=== PATIENT | female | born 1985 | race Caucasian/White ===

== ENCOUNTER 2018-11-20 22:56 | Emergency (ER) | payer SELFPAY | END 2018-11-20 23:50 | disposition home or self-care (01) | LOC: ERS 22:56 | DX: S80.12XA Contusion of left lower leg, initial encounter (principal); V43.62XA Car passenger injured in collision with other type car in traffic accident, initial encounter | CPT/HCPCS: 99283 ==

== ENCOUNTER 2019-09-11 14:52 | Inpatient (IN) | payer OTHER, SELFPAY ==
[2019-09-11] MEDS ORDERED: Morphine 4 MG/ML VIAL ONE (17:32)
[2019-09-11] MEDS ORDERED: Ondansetron PF 4 MG/2 ML Vial ONE (17:32)
[2019-09-11 17:49] LABS: Hemoglobin 11.1 g/dL (12.0-16.0); Mean Corpuscular HGB CONC 31.4 g/dL (32.0-36.0); Mean Corpuscular Hemoglobin 27.5 pg (27.0-31.0); Mean Corpuscular Volume 87.4 fL (78.0-98.0); Mean Platelet Volume 7.1 fL (7.4-10.4); Platelet Count 604 thou/uL (130-400); RBC Distribution Width 11.7 % (11.5-14.5); Red Blood Cell (RBC) Count 4.05 mill/uL (4.20-5.40)
[2019-09-11 18:05] LABS: ALT (SGPT) 24 U/L (8-55); AST (SGOT) 18 U/L (5-34); Albumin 3.5 g/dL (3.5-5.0); Alkaline Phosphatase 164 U/L (40-110); Anion Gap 17 mmol/L (10-20); BUN (Urea Nitrogen) 16 mg/dL (7.0-18.7); Bilirubin, Total 0.5 mg/dL (0.2-1.2); CRP (Inflammatory) 15.71 mg/dL (= or < 0.5); Calc. Creatinine Clearance 0 mL/min (70-130); Calcium 9.3 mg/dL (7.8-10.44); Carbon Dioxide 26 mmol/L (22-29); Chloride 90 mmol/L (98-107); Estimated GFR-MDRD 37; Globulin 5.1 g/dL (2.4-3.5); Glucose 379 mg/dL (70-105); Potassium 3.8 mmol/L (3.5-5.1); Protein, Total 8.6 g/dL (6.0-8.3); Sodium 129 mmol/L (136-145)
[2019-09-11 18:08] LABS: Band 6 % (5-11); Eosinophils 1 % (0-10); Lymphocytes 9 % (21-51); MDiff Complete? YES; Monocytes 4 % (0-10); Myelocyte 1 % (0-0); Neutrophil 79 % (42-75); Platelet Morphology Comment Appears Increased; Polychromasia SLIGHT = 2-3 cells (100X) (0-2/hpf)
[2019-09-11] MEDS ORDERED: cefTRIAXone\\ROCEPHIN 2 GM VIAL ONE (18:34)
--- NOTE | 2019-09-11 18:42 | RAD ---
Exam: XR Foot Lt 3 View STANDARD HISTORY: Infection of the great toe. COMPARISON: None FINDINGS: There is subcutaneous emphysema about the great toe as well as subcutaneous edema. Findings are worri some for infection and likely secondary to gas-forming organism. Subcutaneous soft tissue swelling is seen at the anterior aspect of the ankle as well as at the dorsal aspect of the foot. No acute fracture, dislocation, or other acute osseous abnormality is identified. IMPRESSION: 1. Subcutaneous edema and emphysema involving the left great toe worrisome for infection, and finding s are worrisome for gas forming organism given subcutaneous emphysema. 2. Subcutaneous edema dorsal aspect of the foot which could be related to cellulitis. 3. No acute osseous abnormalities seen. There is no osseous destruction to suggest radiographic evide nce of osteomyelitis. However, MRI would be more sensitive study of choice for evaluation of early osteomyelitis.
[2019-09-11] MEDS ORDERED: Dextrose 50% Abboject 50 ML SYRINGE SLOW IVP PRN (21:02)
[2019-09-11] MEDS ORDERED: Acetaminophen 325 MG TAB PO PRN (21:02)
[2019-09-11] MEDS ORDERED: Senokot S 8.6-50 MG TAB PO PRN (21:02)
[2019-09-11] MEDS ORDERED: Dextrose 5% in Water 1,000 ML IV PRN (21:02)
[2019-09-11] MEDS ORDERED: HYDROcodone/Acetaminophen 5/325 mg Tablet PO PRN (21:02)
--- NOTE | 2019-09-11 21:06 | PDOC.HHP ---
Hospitalist HPI - History of Present Illness Left foot infection History of Present Illness: 34 yo female with no known PMH presents to ER due to 2 weeks of left great toe infection. Patient states that 2 weeks ago she found a blister on the bottom of her left great toe. It burst by itself and she tried to clean it. She has been going to work and states that she fell at work about a week ago. She has noticed some pain and swelling in her left leg for the past week. She reports 4/ 10 pain in her left foot without radiation that is throbbing in nature. Reports fever and chills, nausea, vomiting. No constipation but has diarrhea. No abd. pain. No CP, SOB, Cough, wheezing. She has intermittent palpitations, lightheadedness. No burning or pain with urination. No headache or vision changes. She reports redness in her left foot. ED Course: Found to have left foot infection and given IV ABX. Found to have new onset diabetes Hospitalist ROS - Review of Systems All other systems reviewed; all pertinent +/- noted in HPI/Subj Hospitalist History - Past Medical History Source: patient Cardiac: reports: no pertinent history Pulmonary: reports: no pertinent history [employer]: reports: no pertinent history Gastrointestinal: reports: no pertinent history - Past Surgical History Past Surgical History: reports: no pertinent history (reviewed) - Family History Family History: reports: diabetes mellitus (maternal side) - Social History Smoking Status: Never smoker Alcohol: reports: None Drugs: reports: none Living Situation: Alone Activity level: independent ambulation - Exam General Appearance: awake alert, ill appearing Eye: PERRL, anicteric sclera ENT: normocephalic atraumatic, no oropharyngeal lesions, dry oral mucosa Neck: supple, symmetric, no JVD, no thyromegaly Neck - other findings: bilateral lymph nodes that are non tender Heart: no murmur, no gallops, no rubs, normal peripheral pulses Heart - other findings: tachycardia present Respiratory: CTAB, no wheezes, no rales, no ronchi, normal chest expansion, no tachypnea, normal percussion Gastrointestinal: soft, non-tender, non-distended, normal bowel sounds, no palpable masses, no hepatomegaly, no splenomegaly Extremities: no cyanosis, no clubbing, 1+ LE edema (LLE) Skin: normal turgor Skin - other findings: Erythema over left foot; Left great toe purulent discharge and sloughing Neurological: cranial nerve grossly intact, no weakness, no focal deficits Neurological - other findings: Reduced sensation distally Musculoskeletal: normal tone, normal strength, no muscle wasting Psychiatric: normal affect, normal behavior, A&O x 3 Hospitalist Results - Labs Result Diagrams: 09/11/19 17:35 09/11/19 17:35 Lab results: WBC 20.0 thou/uL (4.8-10.8) H 09/11/19 17:35 Hgb 11.1 g/dL (12.0-16.0) L 09/11/19 17:35 Hct 35.4 % (36.0-47.0) L 09/11/19 17:35 MCV 87.4 fL (78.0-98.0) 09/11/19 17:35 Plt Count 604 thou/uL (130-400) H 09/11/19 17:35 Band Neuts % (Manual) 6 % (5-11) 09/11/19 17:35 ESR Westergren Greater than 130 mm/hr (Less than 20) 09/11/19 17:35 Sodium 129 mmol/L (136-145) L 09/11/19 17:35 Potassium 3.8 mmol/L (3.5-5.1) 09/11/19 17:35 Chloride 90 mmol/L (98-107) L 09/11/19 17:35 Carbon Dioxide 26 mmol/L (22-29) 09/11/19 17:35 BUN 16 mg/dL (7.0-18.7) 09/11/19 17:35 Creatinine 1.58 mg/dL (0.6-1.1) H 09/11/19 17:35 Glucose 379 mg/dL (70-105) H 09/11/19 17:35 Lactic Acid 0.9 mmol/L (0.5-2.2) 09/11/19 17:35 Calcium 9.3 mg/dL (7.8-10.44) 09/11/19 17:35 Total Bilirubin 0.5 mg/dL (0.2-1.2) 09/11/19 17:35 AST 18 U/L (5-34) 09/11/19 17:35 ALT 24 U/L (8-55) 09/11/19 17:35 Alkaline Phosphatase 164 U/L (40-110) H 09/11/19 17:35 C-Reactive Protein 15.71 mg/dL (= or < 0.5) H 09/11/19 17:35 Serum Total Protein 8.6 g/dL (6.0-8.3) H 09/11/19 17:35 Albumin 3.5 g/dL (3.5-5.0) 09/11/19 17:35 - Radiology Interpretation Other Status: report reviewed by me (X-ray left foot - emphysema concerning for gas forming organisms) Hospitalist H&P A/P - Problem (1) Foot infection Code(s): L08.9 - LOCAL INFECTION OF THE SKIN AND SUBCUTANEOUS TISSUE, UNSP Status: Acute Assessment and Plan: Admit to inpatient status. Expected to stay at least 2 midnights High risk due to likely need for surgery Will obtain MRI Surgery consult Vanco & cefepime ESR & CRP IV fluids Sepsis present due to infection WBC of 20K and HR>90/min Check lactate level ID consult (2) KENNY (acute kidney injury) Code(s): N17.9 - ACUTE KIDNEY FAILURE, UNSPECIFIED Status: Acute Assessment and Plan: Check renal US Likely related to sepsis and dehydration IVF Avoid nephrotoxic meds and hypotension May need renal consult (3) Hyperglycemia Code(s): R73.9 - HYPERGLYCEMIA, UNSPECIFIED Status: Acute Assessment and Plan: Riccardo new onset DM Check HA1c Start basal Insulin and SSI Diabetic teaching Diabetic diet Hold oral DM meds for now - Plan Plan: CODE STATUS - FULL CODE
[2019-09-11] MEDS ORDERED: Insulin Glargine 10 UNITS in Pre-Filled Syringe 1 EACH SC SCH (21:15)
[2019-09-11 21:58] LABS: Hemoglobin A1c Greater than 14.0 % (4.0-6.0)
[2019-09-11] MEDS: 1/2 NS w/KCL 20 mEq 1,000 ML IV SCH (22:54)
[2019-09-11 23:35] VITALS: BMI 31.3
--- NOTE | 2019-09-12 00:10 | ULT ---
Bilateral renal ultrasound CLINICAL INDICATION: Acute renal insufficiency COMPARISON: None FINDINGS: Right kidney: There is no evidence of a renal mass, renal calculus, or hydronephrosis seen. The right kidney measures 13.3 cm x 6 cm. Left kidney: There is no evidence of a renal mass, renal calculus, or hydronephrosis. The left kidney measures 11.8 cm x 6.1 cm. Urinary bladder: Partially distended. Urinary bladder blair do appear mildly thickened. This is overa ll nonspecific but can be seen with cystitis. Ureteral jets are visualized bilaterally. There is trace amount of free fluid is seen in the pelvis. IMPRESSION: 1. Normal appearing bilateral kidneys without evidence of hydronephrosis. 2. Mild thickening of the blair urinary bladder which is nonspecific. This can be seen with cystitis in the correct clinical scenario. 3. Trace amount of free fluid in the cul-de-sac which is likely physiologic in origin
[2019-09-12] MEDS: HumaLOG 300 UNITS/3 ML VIAL SC PRN (05:46)
[2019-09-12] MEDS: 1/2 NS w/KCL 20 mEq 1,000 ML IV SCH ×3 (05:46→22:00)
[2019-09-12 06:01] LABS: #Eosinphils 0.2 thou/uL (0.0-0.7); #Lymphocytes 2.8 thou/uL (1.20-3.40); #Monocytes 1.5 thou/uL (0.11-0.59); #Neutrophils 13.3 thou/uL (1.40-6.50); %Eosinophils 1.2 % (0.0-10.0); %Lymphocytes 15.7 % (21.0-51.0); %Monocytes 8.3 % (0.0-10.0); %Neutrophils 74.7 % (42.0-75.0); Hemoglobin 8.7 g/dL (12.0-16.0); Mean Corpuscular HGB CONC 31.1 g/dL (32.0-36.0); Mean Corpuscular Hemoglobin 28.2 pg (27.0-31.0); Mean Corpuscular Volume 90.7 fL (78.0-98.0); Mean Platelet Volume 8.4 fL (7.4-10.4); Platelet Count 399 thou/uL (130-400); RBC Distribution Width 11.6 % (11.5-14.5); Red Blood Cell (RBC) Count 3.08 mill/uL (4.20-5.40); White Blood Cell (WBC) Count 17.8 thou/uL (4.8-10.8)
[2019-09-12 06:16] LABS: ALT (SGPT) 19 U/L (8-55); AST (SGOT) 25 U/L (5-34); Albumin 2.5 g/dL (3.5-5.0); Alkaline Phosphatase 122 U/L (40-110); Anion Gap 12 mmol/L (10-20); BUN (Urea Nitrogen) 16 mg/dL (7.0-18.7); Bilirubin, Total 0.2 mg/dL (0.2-1.2); Calc. Creatinine Clearance 89 mL/min (70-130); Calcium 8.1 mg/dL (7.8-10.44); Carbon Dioxide 25 mmol/L (22-29); Chloride 96 mmol/L (98-107); Estimated GFR-MDRD 48; Globulin 4.2 g/dL (2.4-3.5); Glucose 269 mg/dL (70-105); Potassium 4.8 mmol/L (3.5-5.1); Protein, Total 6.7 g/dL (6.0-8.3); Sodium 128 mmol/L (136-145)
[2019-09-12] MEDS ORDERED: traMADol HCl 50 MG TAB PO PRN ×2 (08:34)
[2019-09-12] MEDS ORDERED: Cefepime 2 GM in Sodium Chloride 0.9% 100 ML IVPB SCH (09:00)
[2019-09-12] MEDS ORDERED: Heparin 5,000 UNITS/ML VIAL SC SCH (09:00)
--- NOTE | 2019-09-12 09:03 | CON ---
DATE OF CONSULTATION: HISTORY OF PRESENT ILLNESS: October Marina, 34-year-old female, newly diagnosed diabetes, presented to the emergency room with severe infection in her left foot involving her great toe. Plain x-ray revealed gas. Evaluation reveals a plantar defect extending with a probed sinus tract to the proximal phalanx. She has foul smelling gas gangrene, left great toe involving the metatarsophalangeal joint. She has cellulitis in her forefoot. MRI has been ordered, but I will cancel that. She has noted above. She has newly diagnosed diabetes. Her white count was 20,000 on admission, 17,000 this morning. Creatinine 1.58 on admission, 1.27 this morning. Her hemoglobin A1c is greater than 14. Glucose is 269 to 332. Newly diagnosed diabetes. ALLERGIES: NONE. SOCIAL HISTORY: Tobacco, none. Alcohol, none. MEDICATIONS: At home, none. In the hospital, she has been started on vancomycin and cefepime. We will add Zosyn as this is probably a risk for Clostridium. PAST SURGICAL HISTORY: Noncontributory. PAST MEDICAL HISTORY: Noncontributory. Patient is a damian. She works at the [employer]. PHYSICAL EXAMINATION: VITAL SIGNS: 5 feet 7 inches, 199 pounds, 31 BMI, 98.2 degrees, 92, 138/86. HEAD, EARS, EYES, NOSE, AND THROAT: Unremarkable. LUNGS: Clear to auscultation. CARDIAC: Regular rhythm without murmur or gallop. ABDOMEN: Soft, nontender, obese. EXTREMITIES: Palpable femoral, popliteal, dorsalis pedis, and posterior tibial pulses. She has hair over the dorsum of her foot. She has cellulitis left foot to the mid foot. She has edema to the ankle. Left great toe reveals diabetic gangrene, foul smelling with a plantar ulceration extending to the phalanx at least. She has gangrenous skin surrounding the proximal left great toe and skin changes intervening. ASSESSMENT AND PLAN: Diabetic gas gangrene, left great toe. PLAN: 1. Emergent amputation left great toe and metatarsal. We will cancel her MRI. Ask Wound Care to apply wound VAC in the operating room. We will add Zosyn to her antibiotic regimen. Expect her to be hospitalized until next week. 2. Newly diagnosed diabetes, have encouraged weight loss. Job ID: [id number]
[2019-09-12] MEDS: Polyethylene Glycol 3350 17 GM Packet PO SCH (09:09)
[2019-09-12] MEDS: Vancomycin 1 GM in Premix Bag 1 BAG IVPB SCH ×2 (09:09→20:34)
[2019-09-12] MEDS ORDERED: PHENYLEPHRINE-NS 100 MCG/ML 10 ML SYRINGE ONE (09:42)
[2019-09-12] MEDS ORDERED: Ondansetron PF 4 MG/2 ML Vial ONE (09:42)
[2019-09-12] MEDS ORDERED: Lidocaine 1% PF 5 ML VIAL ONE (09:42)
[2019-09-12] MEDS ORDERED: EPHEDRINE 25 MG/5 ML SYRINGE ONE (09:42)
[2019-09-12] MEDS ORDERED: PROPOFOL 200 MG/20 ML VIAL ONE (09:42)
[2019-09-12] MEDS ORDERED: Piperacillin/Tazobactam 4.5 GM in Sodium Chloride 0.9% 100 ML IVPB SCH (10:00)
[2019-09-12] MEDS: HumaLOG 300 UNITS/3 ML VIAL SC SCH ×2 (11:30→17:57)
[2019-09-12] MEDS ORDERED: Fentanyl 100 MCG/2 ML VIAL ONE (14:07)
[2019-09-12] MEDS ORDERED: Bupivacaine PF 0.5% 30 ML VIAL ONE (14:26)
[2019-09-12] MEDS ORDERED: Lidocaine 1% w/Epinephrine 1:100K 20 ML VIAL ONE (14:26)
[2019-09-12] MEDS ORDERED: Morphine Sulfate 2 MG/ML SYRINGE SLOW IVP PRN (15:09)
[2019-09-12] MEDS ORDERED: Promethazine HCl 25 MG/ML VIAL SLOW IVP PRN (15:09)
[2019-09-12] MEDS ORDERED: PACU-Morphine 4MG/ML VIAL SLOW IVP PRN (15:09)
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
[2019-09-12] MEDS: Ondansetron PF 4 MG/2 ML Vial IVP PRN (20:31)
[2019-09-12] MEDS: Enoxaparin Sodium 40 MG/0.4 ML SYRINGE SC SCH (20:34)
[2019-09-12] MEDS: Piperacillin/Tazobactam 4.5 GM in Sodium Chloride 0.9% 100 ML IVPB SCH (20:35)
[2019-09-12] MEDS: Insulin Glargine 15 UNITS in Pre-Filled Syringe 1 EACH SC SCH (20:49)
[2019-09-12] MEDS ORDERED: Insulin Glargine 10 UNITS in Pre-Filled Syringe 1 EACH SC SCH (21:00)
--- NOTE | 2019-09-12 21:30 | OP ---
DATE OF PROCEDURE: 09/12/2019 PREOPERATIVE DIAGNOSES: Newly diagnosed diabetic, hemoglobin A1c greater than 14, diabetic infection left great toe with osteomyelitis and gas gangrene. POSTOPERATIVE DIAGNOSES: Newly diagnosed diabetic, hemoglobin A1c greater than 14, diabetic infection left great toe with osteomyelitis and gas gangrene. PROCEDURE PERFORMED: Amputation of left great toe and metatarsal healing by secondary intention, culture submitted. ANESTHESIA: General anesthesia. Note, excellent blood supply and palpable pulses. DESCRIPTION OF PROCEDURE: The patient was taken to the operating room, where under general anesthesia, left lower extremity was prepared with ChloraPrep and draped in routine fashion. Incision was made to amputate the left great toe with gangrenous tissue carried out to skin and subcutaneous tissue, amputating the metatarsal with a bone cutter resecting approximately with rongeur. Wound irrigated. There was bleeding controlled with cautery. Wound irrigated. Necrotic tissue debrided. Good hemostasis noted. Wound Care Team arrived to place a wound VAC. The patient tolerated the procedure well. Job ID: [id number]
--- NOTE | 2019-09-12 22:16 | PDOC.HOSPP ---
- Subjective Encounter Date: 09/12/19 Encounter Time: 16:00 Subjective: no overnight events. this afternoon, s/p amputation L big toe. tolerated procedure well, has no complaints. - Objective Vital Signs & Weight: Vital Signs (12 hours) Temp Pulse Resp BP Pulse Ox 09/12/19 11:51 98.7 F 104 H 22 H 165/72 H 94 L Weight Admit Weight 199 lb 14.4 oz Weight 199 lb 14.4 oz I&O: 09/11/19 09/12/19 09/13/19 06:59 06:59 06:59 Intake Total 2100 Balance 2100 Result Diagrams: 09/12/19 05:15 09/12/19 05:15 Additional Labs: Accuchecks 09/12/19 09/12/19 09/12/19 16:40 11:43 05:16 POC Glucose 197 H 223 H 269 H 09/11/19 22:47 POC Glucose 332 H Hospitalist ROS - Review of Systems Constitutional: denies: fever, chills, sweats, weakness, malaise, other Respiratory: denies: cough, dry, shortness of breath, hemoptysis, SOB with excertion, pleuritic pain, sputum, wheezing, other Cardiovascular: denies: chest pain, palpitations, orthopnea, paroxysmal noc. dyspnea, edema, light headedness, other Gastrointestinal: denies: nausea, vomiting, abdominal pain, diarrhea, constipation, melena, hematochezia, other Genitourinary: denies: dysuria, frequency, incontinence, hematuria, retention, other - Medication Medications: Active Medications Generic Name Dose Route Start Last Admin Trade Name Shashiq PRN Reason Stop Dose Admin Enoxaparin Sodium 40 mg 09/12/19 21:00 09/12/19 20:34 Lovenox SC 40 mg 2100 ROSALVA Administration Vancomycin HCl 1 gm/ Device 200 mls @ 200 mls/hr 09/12/19 08:00 09/12/19 20: 34 IVPB 200 mls 0800,2000 ROSALVA Administration Potassium Chloride/Sodium Chloride 1,000 mls @ 125 mls/hr 09/11/19 22:00 12/26 22:00 1/2 Ns W/Kcl 20 Meq IV Not Given .Q8H ROSALVA Insulin Glargine 15 units/ 0.15 mls @ 0 mls/hr 09/12/19 21:00 09/12/19 20:49 Miscellaneous Medication SC 0.15 mls HS ROSALVA Administration As Directed Piperacillin Sod/Tazobactam 100 mls @ 200 mls/hr 09/12/19 21:00 09/12/19 20: 35 Sod 4.5 gm/ Sodium Chloride IVPB 100 mls 0300,0900,1500,2100 ROSALVA Administration Insulin Human Lispro 0 units 09/11/19 21:02 09/12/19 05:46 Humalog SC 4 unit .MILD SLIDING SCALE PRN Administration Mild Correctional Scale Insulin Human Lispro 5 units 09/12/19 11:30 09/12/19 17:57 Humalog SC 5 unit AC ROSALVA Administration Ondansetron HCl 4 mg 09/11/19 21:02 09/12/19 20:31 Zofran IVP 4 mg Q6H PRN Administration Nausea/Vomiting Polyethylene Glycol 17 gm 09/12/19 09:00 09/12/19 09:09 Miralax PO Not Given DAILY ROSALVA Sodium Chloride 10 ml 09/12/19 09:00 09/12/19 20:36 Flush - Normal Saline IVF Not Given Q12HR ROSALVA - Exam General Appearance: NAD, awake alert Neck: no JVD Heart: RRR, no murmur, no gallops, no rubs, normal peripheral pulses Respiratory: CTAB, no wheezes, no rales, no ronchi, normal chest expansion Gastrointestinal: soft, non-tender, non-distended, normal bowel sounds Extremities: no edema Extremities - other findings: wound vac placed over L toe, draining clean blood Neurological: cranial nerve grossly intact, normal sensation to touch, no weakness, no focal deficits Psychiatric: normal affect, normal behavior, A&O x 3 Hosp A/P - Plan #gas gangrene, osteomyelitis of L big toe -s/p amputation L big toe, metatarsal -tolerated procedure well -wound vac in place -on vanc and zosyn; continue Abx pending cultures -pain management #newly diagnosed T2DM -adjusted insulin regimen based on weight -continue to follow remaining management unchanged.
[2019-09-12] MEDS ORDERED: Loperamide HCl 2 MG CAP PO SCH (22:30)
[2019-09-13] MEDS: Piperacillin/Tazobactam 4.5 GM in Sodium Chloride 0.9% 100 ML IVPB SCH ×4 (02:47→21:13)
[2019-09-13] MEDS: Ondansetron PF 4 MG/2 ML Vial IVP PRN ×3 (02:51→20:38)
[2019-09-13] MEDS: Sodium Chloride 0.9% 1,000 ML IV SCH ×2 (04:11→16:46)
[2019-09-13] MEDS: Acetaminophen 500 MG TAB PO PRN ×3 (04:11→21:22)
[2019-09-13] MEDS: HumaLOG 300 UNITS/3 ML VIAL SC PRN ×2 (04:12→13:33)
[2019-09-13 07:19] LABS: #Basophils 0.1 thou/uL (0.0-0.2); #Eosinphils 0.3 thou/uL (0.0-0.7); #Lymphocytes 2.5 thou/uL (1.20-3.40); #Monocytes 0.9 thou/uL (0.11-0.59); %Basophils 0.4 % (0.0-1.0); %Eosinophils 1.8 % (0.0-10.0); %Monocytes 6.2 % (0.0-10.0); %Neutrophils 74.6 % (42.0-75.0); Hemoglobin 7.8 g/dL (12.0-16.0); Mean Corpuscular HGB CONC 32.9 g/dL (32.0-36.0); Mean Corpuscular Hemoglobin 29.7 pg (27.0-31.0); Mean Corpuscular Volume 90.2 fL (78.0-98.0); Mean Platelet Volume 6.7 fL (7.4-10.4); Platelet Count 482 thou/uL (130-400); RBC Distribution Width 11.6 % (11.5-14.5); Red Blood Cell (RBC) Count 2.63 mill/uL (4.20-5.40); White Blood Cell (WBC) Count 14.8 thou/uL (4.8-10.8)
[2019-09-13 07:22] LABS: Vancomycin, Trough 27.9 ug/mL
[2019-09-13 07:50] LABS: Anion Gap 11 mmol/L (10-20); BUN (Urea Nitrogen) 21 mg/dL (7.0-18.7); Calc. Creatinine Clearance 56 mL/min (70-130); Calcium 7.6 mg/dL (7.8-10.44); Carbon Dioxide 25 mmol/L (22-29); Chloride 99 mmol/L (98-107); Estimated GFR-MDRD 28; Glucose 322 mg/dL (70-105); Potassium 4.6 mmol/L (3.5-5.1); Sodium 130 mmol/L (136-145)
[2019-09-13] MEDS: Polyethylene Glycol 3350 17 GM Packet PO SCH (09:50)
[2019-09-13] MEDS: HumaLOG 300 UNITS/3 ML VIAL SC SCH ×4 (09:51→17:20)
--- NOTE | 2019-09-13 15:03 | PDOC.HOSPP ---
- Subjective Encounter Date: 09/13/19 Encounter Time: 11:40 Subjective: feels quite fatigued, d/w her reg.. insulin and having home regimen, pt able to acquire home insulin upon dc- no insurance. expalined a1c monitoring and diet adherence. - Objective Vital Signs & Weight: Vital Signs (12 hours) Temp Pulse Resp BP BP Pulse Ox 09/13/19 12:00 98.3 F 93 16 156/95 H 95 09/13/19 08:00 98.3 F 86 16 110/72 96 09/13/19 03:58 98.2 F 92 16 97/63 95 Weight Admit Weight 199 lb 14.4 oz Weight 199 lb 14.4 oz I&O: 09/12/19 09/13/19 09/14/19 06:59 06:59 07:59 Intake Total 2100 1750 240 Balance 2100 1750 240 Result Diagrams: 09/13/19 06:51 09/13/19 06:51 Additional Labs: Accuchecks 09/13/19 09/13/19 09/13/19 12:33 03:53 01:14 POC Glucose 232 H 333 H 301 H 09/12/19 16:40 POC Glucose 197 H Hospitalist ROS - Medication Medications: Active Medications Generic Name Dose Route Start Last Admin Trade Name Freq PRN Reason Stop Dose Admin Acetaminophen 1,000 mg 09/12/19 08:34 09/13/19 14:43 Tylenol PO 1,000 mg Q6H PRN Administration Moderate to Severe Pain (6-10) Enoxaparin Sodium 40 mg 09/12/19 21:00 09/12/19 20:34 Lovenox SC 40 mg 2100 ROSALVA Administration Insulin Glargine 15 units/ 0.15 mls @ 0 mls/hr 09/12/19 21:00 09/12/19 20:49 Miscellaneous Medication SC 0.15 mls HS ROSALVA Administration As Directed Piperacillin Sod/Tazobactam 100 mls @ 200 mls/hr 09/12/19 21:00 09/13/19 09: 52 Sod 4.5 gm/ Sodium Chloride IVPB 100 mls 0300,0900,1500,2100 ROSALVA Administration Sodium Chloride 1,000 mls @ 75 mls/hr 09/13/19 03:15 09/13/19 04:11 Normal Saline 0.9% IV 1,000 mls .[id number] ROSALVA Administration Insulin Human Lispro 0 units 09/11/19 21:02 09/13/19 13:33 Humalog SC 3 unit .MILD SLIDING SCALE PRN Administration Mild Correctional Scale Insulin Human Lispro 10 units 09/13/19 11:30 09/13/19 09:51 Humalog SC 10 unit AC ROSALVA Administration Ondansetron HCl 4 mg 09/11/19 21:02 09/13/19 13:30 Zofran IVP 4 mg Q6H PRN Administration Nausea/Vomiting Polyethylene Glycol 17 gm 09/12/19 09:00 09/13/19 09:50 Miralax PO Not Given DAILY ROSALVA Sodium Chloride 10 ml 09/12/19 09:00 09/13/19 09:50 Flush - Normal Saline IVF 10 ml Q12HR ROSALVA Administration - Exam General Appearance: NAD, awake alert, ill appearing Eye: PERRL ENT: normocephalic atraumatic Neck: supple Heart: RRR Respiratory: CTAB Gastrointestinal: normal bowel sounds Extremities - other findings: left foot - dry dressing Hosp A/P - Plan #gas gangrene, osteomyelitis of L big toe -s/p amputation L big toe, metatarsal -tolerated procedure well -wound vac in place -on vanc and zosyn; continue Abx pending cultures -pain management #newly diagnosed T2DM -adjusted insulin regimen based on weight -d/w her reg.. insulin and having home regimen, pt able to acquire home insulin upon dc- no insurance. expalined a1c monitoring and diet adherence. Dr. Mauri Rice following w.. us.
[2019-09-13] MEDS ORDERED: Vancomycin 1 GM in Premix Bag 1 BAG IVPB SCH (20:00)
[2019-09-13] MEDS ORDERED: Vancomycin HCl 500 MG in Sodium Chloride 0.9% 100 ML IVPB SCH (20:00)
[2019-09-13] MEDS: Enoxaparin Sodium 40 MG/0.4 ML SYRINGE SC SCH (21:14)
[2019-09-13] MEDS: Insulin Glargine 15 UNITS in Pre-Filled Syringe 1 EACH SC SCH (21:15)
--- NOTE | 2019-09-13 23:33 | PDOC.EVN ---
Event Note - Event Note Event Note: RN called - Pt has blurriness of vision with some headache since this AM - didn' t tell anyone earlier. Not related to any position. NIH - 0. Patient states that she usually has this when she is nauseas. Will cont to monitor. AM MD to reevaluate. Consider Ophthalmology consult
[2019-09-14] MEDS: Piperacillin/Tazobactam 4.5 GM in Sodium Chloride 0.9% 100 ML IVPB SCH ×3 (04:02→14:07)
[2019-09-14] MEDS: Sodium Chloride 0.9% 1,000 ML IV SCH ×2 (06:23→17:18)
[2019-09-14] MEDS: Ondansetron PF 4 MG/2 ML Vial IVP PRN (07:51)
[2019-09-14] MEDS: Polyethylene Glycol 3350 17 GM Packet PO SCH (07:52)
[2019-09-14] MEDS: HumaLOG 300 UNITS/3 ML VIAL SC SCH ×3 (09:14→17:19)
--- NOTE | 2019-09-14 15:19 | PDOC.HOSPP ---
- Subjective Encounter Date: 09/14/19 Encounter Time: 10:45 Subjective: pt still have some blurriness, but denies any throbbing sensation, pain behind the eyes, no watery, no color blindness, no floaters. exam - EOM intact, visual acuity intact, no conjunctivites; no nystagmus. last few BG readings ok. diarreha 2 epsiodes o/n.; cdiff neg. - Objective Vital Signs & Weight: Vital Signs (12 hours) Temp Pulse Resp BP BP Pulse Ox 09/14/19 12:00 98.0 F 89 16 159/91 H 99 09/14/19 07:51 96 09/14/19 07:24 98.8 F 90 16 153/91 H 96 09/14/19 04:00 98.3 F 89 16 134/94 H 92 L Weight Admit Weight 199 lb 14.4 oz Weight 199 lb 14.4 oz I&O: 09/13/19 09/14/19 09/15/19 05:59 06:59 06:59 Intake Total Balance Result Diagrams: 09/13/19 06:51 09/13/19 06:51 Additional Labs: Accuchecks 09/14/19 09/13/19 09/13/19 04:16 20:52 16:43 POC Glucose 149 H 167 H 133 H Hospitalist ROS - Medication Medications: Active Medications Generic Name Dose Route Start Last Admin Trade Name Freq PRN Reason Stop Dose Admin Acetaminophen 1,000 mg 09/12/19 08:34 09/13/19 21:22 Tylenol PO 1,000 mg Q6H PRN Administration Moderate to Severe Pain (6-10) Enoxaparin Sodium 40 mg 09/12/19 21:00 09/13/19 21:14 Lovenox SC 40 mg 2100 ROSALVA Administration Insulin Glargine 15 units/ 0.15 mls @ 0 mls/hr 09/12/19 21:00 09/13/19 21:15 Miscellaneous Medication SC 0.15 mls HS ROSALVA Administration As Directed Sodium Chloride 1,000 mls @ 75 mls/hr 09/13/19 03:15 09/14/19 06:23 Normal Saline 0.9% IV Not Given .[id number] ROSALVA Vancomycin HCl 1 gm/ Device 200 mls @ 200 mls/hr 09/13/19 20:00 09/13/19 22: 55 IVPB 200 mls 1999 ROSALVA Administration Insulin Human Lispro 0 units 09/11/19 21:02 09/13/19 13:33 Humalog SC 3 unit .MILD SLIDING SCALE PRN Administration Mild Correctional Scale Insulin Human Lispro 10 units 09/13/19 11:30 09/14/19 14:11 Humalog SC Not Given AC ROSALVA Ondansetron HCl 4 mg 09/11/19 21:02 09/14/19 07:51 Zofran IVP 4 mg Q6H PRN Administration Nausea/Vomiting Polyethylene Glycol 17 gm 09/12/19 09:00 09/14/19 07:52 Miralax PO Not Given DAILY ROSALVA Sodium Chloride 10 ml 09/12/19 09:00 09/14/19 07:52 Flush - Normal Saline IVF 10 ml Q12HR ROSALVA Administration - Exam General Appearance: NAD Eye: PERRL, anicteric sclera Eye - other findings: exam - EOM intact, visual acuity intact, no conjunctivites ; no nystagmus. ENT: normocephalic atraumatic Neck: supple Heart: RRR Respiratory: CTAB Gastrointestinal: soft, non-distended, normal bowel sounds Neurological: cranial nerve grossly intact, no focal deficits Hosp A/P - Plan #gas gangrene, osteomyelitis of L big toe -wound cx - enterococcus and s.aureus. -s/p amputation L big toe, metatarsal -tolerated procedure well -wound vac in place -on vanc and zosyn; continue Abx pending cultures -pain management #newly diagnosed T2DM -adjusted insulin regimen based on weight -d/w her reg.. insulin and having home regimen, pt able to acquire home insulin upon dc- no insurance. expalined a1c monitoring and diet adherence. Blurriness pt still have some blurriness, but denies any throbbing sensation, pain behind the eyes, no watery, no color blindness, no floaters. exam - EOM intact, visual acuity intact, no conjunctivites; no nystagmus. last few BG readings ok. -since this is non-emergency and likely diabetic retinopathy related - will fw as OP, unless any change in condition, then will consult opthalmologist. Diarreha 2 epsiodes o/n.; - cdiff neg. Dr. Dotson and Dr. Rice following w.. us.
--- NOTE | 2019-09-14 15:21 | PRG ---
DATE OF SERVICE: 09/14/2019 SUBJECTIVE: The patient had some nausea and some blurred vision earlier today, but has resolved. No chest pain. No abdominal pain. No significant pain, maybe [id number] pain in the left foot area at the amputation site. OBJECTIVE: VITAL SIGNS: Normal except for mild elevation of systolic blood pressure. GENERAL: Awake, alert, oriented. HEENT: Ocular movements conjugate. HEART: S1, S2. Regular rate. LUNGS: Clear lungs. ABDOMEN: Soft, not distended. EXTREMITIES: The amputation site wound with fresh bleeding. LABORATORY DATA: White cell count is down to 14.8, hemoglobin 7.8, platelets 482 with 74% neutrophils. Creatinine 2.03. Microbiology with Enterococcus species yet to be identified, susceptibility tested and what appears to be methicillin-sensitive Staphylococcus aureus. ASSESSMENT AND DISCUSSION: Undiagnosed diabetes mellitus, neuropathy, and aggressive infection left first toe status post first ray amputation with healing by secondary intention with negative pressure dressing, still with quite significant neutrophilia. The one of the organisms susceptibility still needs to be resulted. The other one is methicillin sensitive Staph aureus. We will go ahead and switch her to ceftriaxone and continue vancomycin until the susceptibility of the Enterococcus is finalized. Keep her in the hospital until those issues are resolved. She may need continuation of antimicrobial therapy in view of the severity of the process or could be transitioned to oral antimicrobial therapy, but I would then give her probably at least 4 to 6 weeks to prevent relapse of the infection. Job ID: [id number]
[2019-09-14] MEDS: cefTRIAXone\\ROCEPHIN 2 GM in Sodium Chloride 0.9% 100 ML IVPB SCH (15:48)
[2019-09-14] MEDS: Acetaminophen 500 MG TAB PO PRN (17:23)
[2019-09-14 19:38] LABS: Vancomycin, Trough 25.5 ug/mL
[2019-09-14] MEDS: Insulin Glargine 15 UNITS in Pre-Filled Syringe 1 EACH SC SCH (20:42)
[2019-09-14] MEDS: Enoxaparin Sodium 40 MG/0.4 ML SYRINGE SC SCH (20:43)
[2019-09-15] MEDS: Loperamide HCl 2 MG CAP PO PRN ×2 (02:53→15:06)
[2019-09-15] MEDS: Ondansetron PF 4 MG/2 ML Vial IVP PRN ×2 (05:26→20:19)
[2019-09-15 05:48] LABS: #Basophils 0.1 thou/uL (0.0-0.2); #Eosinphils 0.2 thou/uL (0.0-0.7); #Lymphocytes 2.2 thou/uL (1.20-3.40); #Monocytes 0.9 thou/uL (0.11-0.59); %Basophils 0.7 % (0.0-1.0); %Eosinophils 1.2 % (0.0-10.0); %Lymphocytes 16.2 % (21.0-51.0); %Monocytes 6.4 % (0.0-10.0); %Neutrophils 75.5 % (42.0-75.0); Hemoglobin 9.4 g/dL (12.0-16.0); Mean Corpuscular Hemoglobin 29.6 pg (27.0-31.0); Mean Corpuscular Volume 89.7 fL (78.0-98.0); Mean Platelet Volume 6.3 fL (7.4-10.4); Platelet Count 633 thou/uL (130-400); RBC Distribution Width 11.9 % (11.5-14.5); Red Blood Cell (RBC) Count 3.17 mill/uL (4.20-5.40); White Blood Cell (WBC) Count 13.3 thou/uL (4.8-10.8)
[2019-09-15 06:16] LABS: Anion Gap 16 mmol/L (10-20); BUN (Urea Nitrogen) 20 mg/dL (7.0-18.7); Calc. Creatinine Clearance 50 mL/min (70-130); Calcium 8.5 mg/dL (7.8-10.44); Carbon Dioxide 20 mmol/L (22-29); Chloride 104 mmol/L (98-107); Estimated GFR-MDRD 25; Glucose 110 mg/dL (70-105); Sodium 136 mmol/L (136-145)
[2019-09-15] MEDS: Sodium Chloride 0.9% 1,000 ML IV SCH ×2 (07:17→21:55)
[2019-09-15] MEDS: Polyethylene Glycol 3350 17 GM Packet PO SCH (08:19)
[2019-09-15] MEDS: Saccharomyces boulardii 250 MG CAP PO SCH (08:21)
[2019-09-15] MEDS: Vancomycin HCl 750 MG in Sodium Chloride 0.9% 250 ML 250 ML IVPB SCH (08:21)
[2019-09-15] MEDS: Acetaminophen 500 MG TAB PO PRN ×2 (09:22→20:17)
[2019-09-15] MEDS: HumaLOG 300 UNITS/3 ML VIAL SC SCH ×4 (09:22→17:43)
[2019-09-15] MEDS: HumaLOG 300 UNITS/3 ML VIAL SC PRN (12:19)
--- NOTE | 2019-09-15 14:09 | PDOC.HOSPP ---
- Subjective Encounter Date: 09/15/19 Encounter Time: 11:35 Subjective: diet is not stable as some emals she is able to eat lot and some time nauseated , BG trending down--improving. - Objective Vital Signs & Weight: Vital Signs (12 hours) Temp Pulse Resp BP BP Pulse Ox 09/15/19 11:32 97.6 F 96 18 147/84 H 97 09/15/19 08:21 92 L 09/15/19 07:57 98.6 F 95 18 148/86 H 92 L 09/15/19 04:15 97.9 F 88 16 127/78 94 L Weight Admit Weight 199 lb 14.4 oz Weight 199 lb 14.4 oz I&O: 09/14/19 09/15/19 09/16/19 06:59 06:59 06:59 Intake Total 1196 1200 Balance 1196 1200 Result Diagrams: 09/15/19 05:22 09/15/19 05:22 Additional Labs: Accuchecks 09/15/19 09/15/19 09/14/19 11:34 09:25 20:02 POC Glucose 189 H 106 86 09/14/19 09/14/19 09/12/19 15:42 11:07 20:49 POC Glucose 150 H 127 H 204 H Hospitalist ROS - Medication Medications: Active Medications Generic Name Dose Route Start Last Admin Trade Name Freq PRN Reason Stop Dose Admin Acetaminophen 1,000 mg 09/12/19 08:34 09/15/19 09:22 Tylenol PO 1,000 mg Q6H PRN Administration Moderate to Severe Pain (6-10) Enoxaparin Sodium 40 mg 09/12/19 21:00 09/14/19 20:43 Lovenox SC 40 mg 2100 ROSALVA Administration Sodium Chloride 1,000 mls @ 75 mls/hr 09/13/19 03:15 09/15/19 07:17 Normal Saline 0.9% IV 1,000 mls .[id number] ROSALVA Administration Ceftriaxone Sodium 2 gm/ 100 mls @ 200 mls/hr 09/14/19 15:00 09/14/19 15:48 Sodium Chloride IVPB 100 mls 1500 ROSALVA Administration Vancomycin HCl 750 mg/ Sodium 250 mls @ 250 mls/hr 09/15/19 09:00 09/15/19 08 :21 Chloride IVPB 250 mls Q24HR@0900 ROSALVA Administration Insulin Human Lispro 0 units 09/11/19 21:02 09/15/19 12:19 Humalog SC 2 unit .MILD SLIDING SCALE PRN Administration Mild Correctional Scale Insulin Human Lispro 5 units 09/15/19 17:00 09/15/19 12:19 Humalog SC 5 unit AC ROSALVA Administration Loperamide HCl 2 mg 09/15/19 02:40 09/15/19 02:53 Imodium PO 2 mg PRN PRN Administration Diarrhea/Loose Stools Ondansetron HCl 4 mg 09/11/19 21:02 09/15/19 05:26 Zofran IVP 4 mg Q6H PRN Administration Nausea/Vomiting Polyethylene Glycol 17 gm 09/12/19 09:00 09/15/19 08:19 Miralax PO Not Given DAILY ROSALVA Saccharomyces Boulardii 250 mg 09/15/19 09:00 09/15/19 08:21 Florastor PO 250 mg DAILY ROSALVA Administration Sodium Chloride 10 ml 09/12/19 09:00 09/15/19 08:21 Flush - Normal Saline IVF Not Given Q12HR ROSALVA - Exam General Appearance: NAD, awake alert Eye: PERRL ENT: normocephalic atraumatic Neck: supple Heart: RRR Respiratory: CTAB, normal chest expansion Gastrointestinal: soft, normal bowel sounds Hosp A/P - Plan #gas gangrene, osteomyelitis of L big toe -wound cx - enterococcus and s.aureus. -s/p amputation L big toe, metatarsal -tolerated procedure well -wound vac in place -on vanc and zosyn------>schanged to CTX; plan for 4 to 6 wks -enterococcus- sens pending -pain management #newly diagnosed T2DM -adjusted insulin regimen based on weight -d/w her reg.. insulin and having home regimen, pt able to acquire home insulin upon dc- no insurance. explained a1c monitoring and diet adherence. Blurriness -- denies any throbbing sensation, pain behind the eyes, no watery, no color blindness, no floaters. exam - EOM intact, visual acuity intact, no conjunctivites; no nystagmus. last few BG readings ok. -since this is non-emergency and likely diabetic retinopathy related - will fw as OP, unless any change in condition, then will consult opthalmologist. -she probably has diabetic retinopathy d/t uncon DM -fw as OP Diarreha 2 epsiodes o/n.; - cdiff neg. Dr. Dotson and Dr. Rice following w.. us.
[2019-09-15] MEDS: cefTRIAXone\\ROCEPHIN 2 GM in Sodium Chloride 0.9% 100 ML IVPB SCH (15:00)
--- NOTE | 2019-09-15 18:08 | PRG ---
DATE OF SERVICE: 09/15/2019October Marina is doing well today. Her wound VAC was changed from her foot wound. Her foot wound looks excellent. There is no active infection. Temperature 98.5 degrees, blood pressure 136/86. Her outpatient wound VAC has not been approved as of yet. Foot cultures revealed Enterococcus and Staphylococcus. At this point, the patient is doing well. The patient can be discharged home anytime with home wound VAC. She should follow up in my office in about 3 to 4 weeks. I will see her as needed in this hospitalization. Job ID: [id number]
--- NOTE | 2019-09-15 18:11 | PRG ---
DATE OF SERVICE: 09/15/2019 SUBJECTIVE: The patient had the toe amputation. No respiratory symptoms or abdominal pain. No diarrhea. OBJECTIVE: VITAL SIGNS: Normal. LUNGS: Clear. CHEST: S1 and S2, regular rate. ABDOMEN: Soft, not distended, or tender. EXTREMITIES: First toe has been amputated and the inflammatory changes have improved markedly. There is a fresh open wound, negative pressure dressing over it. LABORATORY DATA: White cell count is down to 13,000 and hemoglobin 9.4. Creatinine is 2.25, GFR 25, which is worsened on admission. The patient is currently on ceftriaxone and vancomycin. Cultures revealed E faecalis in methicillin sensitive Staph aureus. At this point, we will recommend switching to oral Augmentin plus ciprofloxacin for at least 4 weeks and careful followup of the clinical and laboratory progress in the outpatient setting. The dose of Cipro will be adjusted for renal function 250 mg b.i.d. and dose of Augmentin will be 500 mg/125 p.o. b.i.d. Again, continue this regimen for a total of 4 weeks at least according to clinical and laboratory progress. I will be glad to follow her up in the outpatient setting to verify response to treatment. Job ID: [id number]
[2019-09-15] MEDS: Enoxaparin Sodium 40 MG/0.4 ML SYRINGE SC SCH (20:17)
[2019-09-15] MEDS: Insulin Glargine 20 UNITS in Pre-Filled Syringe 1 EACH SC SCH (20:24)
[2019-09-16] MEDS: Acetaminophen 500 MG TAB PO PRN ×3 (04:42→18:49)
[2019-09-16] MEDS: Polyethylene Glycol 3350 17 GM Packet PO SCH (08:32)
[2019-09-16] MEDS: HumaLOG 300 UNITS/3 ML VIAL SC SCH ×3 (08:46→16:39)
[2019-09-16] MEDS: Saccharomyces boulardii 250 MG CAP PO SCH (08:46)
[2019-09-16] MEDS: Vancomycin HCl 750 MG in Sodium Chloride 0.9% 250 ML 250 ML IVPB SCH (08:47)
[2019-09-16] MEDS: Sodium Chloride 0.9% 1,000 ML IV SCH ×2 (11:35→14:11)
--- NOTE | 2019-09-16 13:47 | PDOC.HOSPP ---
- Subjective Encounter Date: 09/16/19 Encounter Time: 11:30 Subjective: pt is doing well, BG is better, somewhat tolerating the diet. spouse at bedside. - Objective Vital Signs & Weight: Vital Signs (12 hours) Temp Pulse Resp BP BP Pulse Ox 09/16/19 08:00 94 L 09/16/19 07:28 97.7 F 88 18 150/87 H 94 L 09/16/19 03:47 98.0 F 84 20 144/87 H 96 Weight Admit Weight 199 lb 14.4 oz Weight 199 lb 14.4 oz I&O: 09/15/19 09/16/19 09/17/19 06:59 06:59 06:59 Intake Total 1196 2365 Balance 1196 2365 Result Diagrams: 09/15/19 05:22 09/15/19 05:22 Additional Labs: Accuchecks 09/16/19 09/16/19 09/15/19 11:19 03:48 19:21 POC Glucose 132 H 139 H 97 09/15/19 09/15/19 16:36 04:15 POC Glucose 133 H 124 H Hospitalist ROS - Medication Medications: Active Medications Generic Name Dose Route Start Last Admin Trade Name Freq PRN Reason Stop Dose Admin Acetaminophen 1,000 mg 09/12/19 08:34 09/16/19 11:33 Tylenol PO 1,000 mg Q6H PRN Administration Moderate to Severe Pain (6-10) Enoxaparin Sodium 40 mg 09/12/19 21:00 09/15/19 20:17 Lovenox SC 40 mg 2100 ROSALVA Administration Sodium Chloride 1,000 mls @ 75 mls/hr 09/13/19 03:15 09/16/19 11:35 Normal Saline 0.9% IV Not Given .[id number] ROSALVA Ceftriaxone Sodium 2 gm/ 100 mls @ 200 mls/hr 09/14/19 15:00 09/15/19 15:00 Sodium Chloride IVPB 100 mls 1500 ROSALVA Administration Vancomycin HCl 750 mg/ Sodium 250 mls @ 250 mls/hr 09/15/19 09:00 09/16/19 08 :47 Chloride IVPB 250 mls Q24HR@0900 ROSALVA Administration Insulin Glargine 20 units/ 0.2 mls @ 0 mls/hr 09/15/19 21:00 09/15/19 20:24 Miscellaneous Medication SC Not Given HS ROSALVA As Directed Insulin Human Lispro 0 units 09/11/19 21:02 09/15/19 12:19 Humalog SC 2 unit .MILD SLIDING SCALE PRN Administration Mild Correctional Scale Insulin Human Lispro 5 units 09/15/19 17:00 09/16/19 13:21 Humalog SC Not Given AC ROSALVA Loperamide HCl 2 mg 09/15/19 02:40 09/15/19 15:06 Imodium PO 2 mg PRN PRN Administration Diarrhea/Loose Stools Ondansetron HCl 4 mg 09/11/19 21:02 09/15/19 20:19 Zofran IVP 4 mg Q6H PRN Administration Nausea/Vomiting Polyethylene Glycol 17 gm 09/12/19 09:00 09/16/19 08:32 Miralax PO Not Given DAILY ROSALVA Saccharomyces Boulardii 250 mg 09/15/19 09:00 09/16/19 08:46 Florastor PO 250 mg DAILY ROSALVA Administration Sodium Chloride 10 ml 09/12/19 09:00 09/16/19 08:32 Flush - Normal Saline IVF Not Given Q12HR ROSALVA - Exam General Appearance: NAD, awake alert Eye: PERRL ENT: normocephalic atraumatic Neck: supple Heart: RRR Respiratory: CTAB, normal chest expansion Gastrointestinal: soft, normal bowel sounds Extremities - other findings: wound vac Hosp A/P - Plan #gas gangrene, osteomyelitis of L big toe -wound cx - enterococcus and s.aureus. -s/p amputation L big toe, metatarsal -tolerated procedure well -wound vac in place -on vanc and zosyn------>schanged to CTX; plan for 4 to 6 wks -enterococcus- sens pending -pain management #newly diagnosed T2DM -adjusted insulin regimen based on weight -d/w her reg.. insulin and having home regimen, pt able to acquire home insulin upon dc- no insurance. explained a1c monitoring and diet adherence. Blurriness -- denies any throbbing sensation, pain behind the eyes, no watery, no color blindness, no floaters. exam - EOM intact, visual acuity intact, no conjunctivites; no nystagmus. last few BG readings ok. -since this is non-emergency and likely diabetic retinopathy related - will fw as OP, unless any change in condition, then will consult opthalmologist. -she probably has diabetic retinopathy d/t uncon DM -fw as OP Diarreha 2 epsiodes o/n.; - cdiff neg. Dr. Dotson and Dr. Rice are ok for dc. need home wound vac, once it is arranged, plan for dc w.. PO abx.
[2019-09-16] MEDS: cefTRIAXone\\ROCEPHIN 2 GM in Sodium Chloride 0.9% 100 ML IVPB SCH (14:07)
[2019-09-16] MEDS: HumaLOG 300 UNITS/3 ML VIAL SC PRN (16:40)
[2019-09-16] MEDS: Insulin Glargine 20 UNITS in Pre-Filled Syringe 1 EACH SC SCH (19:30)
[2019-09-16] MEDS: Enoxaparin Sodium 40 MG/0.4 ML SYRINGE SC SCH (20:16)
[2019-09-17] MEDS: Sodium Chloride 0.9% 1,000 ML IV SCH ×2 (01:55→14:37)
[2019-09-17] MEDS: HumaLOG 300 UNITS/3 ML VIAL SC SCH ×3 (08:06→16:59)
[2019-09-17] MEDS: Saccharomyces boulardii 250 MG CAP PO SCH (08:07)
[2019-09-17] MEDS: Polyethylene Glycol 3350 17 GM Packet PO SCH (08:07)
[2019-09-17 08:29] LABS: Vancomycin, Trough 17.8 ug/mL
[2019-09-17] MEDS: Vancomycin HCl 750 MG in Sodium Chloride 0.9% 250 ML 250 ML IVPB SCH (08:34)
[2019-09-17] MEDS: Loperamide HCl 2 MG CAP PO PRN (11:41)
[2019-09-17 12:29] VITALS: TEMP 98.5
[2019-09-17] MEDS: cefTRIAXone\\ROCEPHIN 2 GM in Sodium Chloride 0.9% 100 ML IVPB SCH (14:40)
[2019-09-17 16:55] VITALS: BP 166/94
--- NOTE | 2019-09-18 13:02 | DIS ---
DATE OF ADMISSION: 09/11/2019 DATE OF DISCHARGE: 09/17/2019 DISCHARGE DIAGNOSES: 1. 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 2. Status post amputation of the left big toe and metatarsal. 3. Status post wound VAC and will be going home with wound VAC. 4. Newly diagnosed type 2 diabetes mellitus. 5. Blurriness, probably diabetic nephropathy, needs outpatient followup. 6. Diarrhea two episodes. Clostridium difficile was negative. CONSULTS: 1. Dr. Dotson, General Surgery. 2. Dr. Rice, Infectious Disease. DISCHARGE MEDICATIONS: 1. Augmentin 500 twice a day for 4 weeks. 2. Cipro 250 mg twice a day for 4 weeks. 3. Lantus 20 units at bedtime. 4. Prefilled insulin Novolin 5 units before meals and at bedtime. PHYSICAL EXAMINATION: VITAL SIGNS: On the day of discharge, temperature is 98.4, pulse 91, blood pressure 160/92, saturating 94% on room air. GENERAL: The patient is alert, oriented, and she is walking in the live this morning. CARDIAC: She has regular rate and rhythm without murmurs, rubs, or gallops. LUNGS: Clear to auscultation bilaterally without wheezing, rales, or rhonchi. ABDOMEN: Soft, nontender, and nondistended. Good bowel sounds. EXTREMITIES: Without any pitting edema other than dressing on left foot. HOSPITAL COURSE: Please refer to history and physical and daily progress notes for more details. The patient was admitted on September 10 with left foot infection of 2-week duration. The patient also noted to be hyperglycemic at that time. She has undergone surgical intervention as mentioned above and was on vancomycin and cefepime, later that was transitioned to p.o. antibiotics as given above. The patient also had wound VAC and she got home wound VAC and she will be following with Dr. Dotson in four weeks' time. The patient had new diagnosis type 2 diabetes mellitus and A1c was 14.0. The patient was advised during my rounds on a daily basis on adherence to insulin regimen, as well as diet and follow up with new primary care physician in one week. She is also encouraged to get A1c level in the two months' time. The patient needs ongoing counseling and close monitoring for diabetic management. The patient also had some blurriness. Clinically, she did not have any acute emergency for ophthalmological examination as an inpatient. 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 Her symptoms had resolved. She did not have any blurriness, temporal tenderness or floaters. Just brief episode of blurriness that is resolved. Again, this has to be followed in the outpatient setting. The patient reached maximum benefit during this hospitalization and clinically sound enough to be discharged. DISCHARGE INSTRUCTION: Activity as tolerated. Diabetic diet. Follow up with primary care physician in one week. Follow up with Dr. Dotson in 2 weeks. Follow up with Infectious Disease, Dr. Rice, in 2 weeks. TIME SPENT: Discharge time took over 30 minutes. Job ID: [id number]
--- NOTE | 2019-09-19 08:00 | PQF ---
[employer] RASHID DUNCAN [id number] CLINICAL DOCUMENTATION CLARIFICATION FORM: POST DISCHARGE Addendum to original discharge summary date: ____ Late entry note date: _ DATE:09/19/2019 ATTN: Rashid Sotelo Please exercise your independent, professional judgment in responding to the clarification form. Clinical indicators are provided on the bottom of this form for your review Please check appropriate box(s) to clarify if the following diagnosis has been ruled in or ruled out: Sepsis [ ] Ruled in diagnosis [ ] Continue to treat [ ] Resolved [ x] Ruled out diagnosis [ ] Cannot rule out diagnosis [ ] Other diagnosis SIRS [ ] Unable to determine For continuity of documentation, please document condition throughout progress notes and discharge summary. Thank You. CLINICAL INDICATORS - SIGNS / SYMPTOMS / LABS Labs WBC: 09/10=20.0 09/11=17.8 09/12=14.8 09/14=13.3 Vital Signs Pulse: 09/1062=330 09/1142=395 09/14=96 09/16=95 Vital Signs Respi: 09/11=22 09/14=20 09/16=20 Hospitalist H&P p3 09/10 Dr Nuno Sepsis present due to infection Microbiology wound culture 09/11 Positive of MSSA and Enterococcus ED notes p9 09/10 r/o Osteomyelitis, Impression: SIRS Hospitalist H&P p1 09/10 Dr Nuno Presents to ER due to 2 weeks of left great toe infection. Pt states that 2 weeks shaista she found a blister on the bottom of her great toe Hospitalist H&P p1 09/10 Dr Nuno She reports 4/10 pain in her left foot. Reports fever and chills, n/v Hospitalist H&P p1 09/10 Dr Nuno Found to have left foot infection and given IV abx. Found to have a new onset diabetes Hospitalist H&P p4 09/10 Dr Nuno KENNY likely related to sepsis and dehydration PN p1 09/14 Dr Dotson Her wound VAC was changed from her foot wound. Her foot wound looks excellent. There is no active infection' RISK FACTORS Hospitalist H&P p4 09/10 New onset of DM ID consult p2 09/11 Neuropathy GS consult p2 09/11 Diabetic gas gangrene, left great toe Operative report p1 09/11 - Osteomyelitis TREATMENTS BKA of Left foot 09/11 by Hector Shaffer SEP 08 IV Rocephin 2gm SEP 08 IV Cefepime 2gm SEP 08 Insulin 10 units subq SEP 08 IV Zosyn 4.5gm SEP 08 IVF NS 1L SEP 08 IV Vancomycin 2gm Hospitalist H&P p4 09/10 - Avoid nephrotoxic meds and hypotension GS consult 09/11 Hector Dotson ID consult 09/11 Panfilo Rice Microbiology 09/11 Wound Culture (This form is maintained as a part of the permanent medical record) 2014 [employer] All Rights Reserved [email or web address]
== END 2019-09-17 17:20 | disposition hospice, inpatient (51) | DRG 239 ==
LOC: ERS 14:52 → T4-A 20:03
PROVIDERS: ADMIT Internal Medicine Sleep Medicine; ATTEND Internal Medicine
PROC: 0Y6N0Z9 Detachment at Left Foot, Partial 1st Ray, Open Approach (ICD-10-PCS; principal; 2019-09-15)
DX: E11.52 Type 2 diabetes mellitus with diabetic peripheral angiopathy with gangrene (principal); A48.0 Gas gangrene; N17.9 Acute kidney failure, unspecified; M86.8X8 Other osteomyelitis, other site; E11.65 Type 2 diabetes mellitus with hyperglycemia; E11.69 Type 2 diabetes mellitus with other specified complication; E11.40 Type 2 diabetes mellitus with diabetic neuropathy, unspecified; B95.2 Enterococcus as the cause of diseases classified elsewhere; B95.61 Methicillin susceptible Staphylococcus aureus infection as the cause of diseases classified elsewhere; H53.8 Other visual disturbances
CPT/HCPCS: 36415; 36416; 76770; 80048; 80053; 80202; 83036; 83605; 85025; 85652; 86140; 87040; 87070; 87077; 87186; 87205; 87324; 87449; 88305; 88311; 96361; 96365; 96366; 96367; 96375; J0696; J1650; J1815; J2001; J2270; J2405; J2543; J2704; J3010; J3370; J3480; J3490; J7050; S0020

== ENCOUNTER 2019-09-18 00:40 | Emergency (ER) | payer SELFPAY | END 2019-09-18 01:40 | disposition left against medical advice (07) | LOC: ERS 00:40 | DX: Z53.21 Procedure and treatment not carried out due to patient leaving prior to being seen by health care provider (principal) ==